=== PATIENT | female | born 1980 | race Caucasian/White ===

== ENCOUNTER 2024-03-06 21:41 | Emergency (ER) | payer OTHER | END 2024-03-06 23:12 | disposition left against medical advice (07) | LOC: MED 21:41 | DX: S61.419A Laceration without foreign body of unspecified hand, initial encounter (principal); Z53.21 Procedure and treatment not carried out due to patient leaving prior to being seen by health care provider; X58.XXXA Exposure to other specified factors, initial encounter; Y93.89 Activity, other specified; Y92.89 Other specified places as the place of occurrence of the external cause; Y99.8 Other external cause status ==